=== PATIENT | female | born 1995 | race African-American/Black ===

== ENCOUNTER 2016-04-26 07:22 | Emergency (ER) | payer MEDICAID ==
[2015-09-09 23:52] VITALS: BMI 31.2
[~2016-04-26 07:22] MED LIST: EZFE 200200 MG PO; MOTRIN600 MG PO; PERCOCET 5-3251 TAB PO; PRENATAL COMPLE1 TAB PO
== END 2016-04-26 09:40 | disposition home or self-care (01) ==
LOC: D.ER 07:22
DX: J11.1 Influenza due to unidentified influenza virus with other respiratory manifestations (principal)

== ENCOUNTER 2016-09-20 07:50 | Emergency (ER) | payer MEDICAID ==
[2015-09-09 23:52] VITALS: BMI 31.2
== END 2016-09-20 08:39 | disposition home or self-care (01) ==
LOC: D.ER 07:50
DX: S00.03XA Contusion of scalp, initial encounter (principal); W19.XXXA Unspecified fall, initial encounter; S39.012A Strain of muscle, fascia and tendon of lower back, initial encounter

== ENCOUNTER 2016-12-07 01:20 | Emergency (ER) | payer MEDICAID ==
[2015-09-09 23:52] VITALS: BMI 31.2
== END 2016-12-07 01:58 | disposition home or self-care (01) ==
LOC: D.ER 01:20
DX: M54.2 Cervicalgia (principal); S09.90XA Unspecified injury of head, initial encounter; Y04.2XXA Assault by strike against or bumped into by another person, initial encounter; Y93.89 Activity, other specified; Y92.89 Other specified places as the place of occurrence of the external cause

== ENCOUNTER 2017-04-09 16:46 | Emergency (ER) | payer MEDICAID ==
[2015-09-09 23:52] VITALS: BMI 31.2
== END 2017-04-09 17:59 | disposition home or self-care (01) ==
LOC: D.ER 16:46
DX: G89.18 Other acute postprocedural pain (principal)